=== PATIENT | male | born 1940 | race Caucasian/White ===

== ENCOUNTER → 2016-12-02 | Outpatient (CLI) | payer OTHER ==
[~2016-12-02] MED LIST: ASPIRIN325 MG PO; AUGMENTIN 875875 MG PO; CIPRO250 MG PO; FINASTERIDE5 M1 PO; FISH OIL 10001000 MG PO; GLYBURIDE5 MG PO; LOPRESSOR25 MG PO; METFORMIN1000 MG PO; METFORMIN500 MG PO; MOTRIN800 MG PO; NOVOLOG100 U/ML SC; PEPCID40 MG PO; PERCOCET 325 MG1 TA2 PO; ZESTRIL2.5 MG PO; ZOCOR20 MG PO
--- NOTE | ~2016-12-02 | ST ---
[place], [place] EXERCISE STRESS TEST REPORT NAME: YAZMIN KENT UNIT #: [id number] ROOM: DOCTOR: DONN NELSON MD BIRTHDATE: [birth year] DOS: Lexiscan portion of the Lexiscan Cardiolite on the patient. A 0.4 mg of Lexiscan, duration of 10 seconds of a 1-minute test duration. Baseline cardiogram, sinus rhythm with T-wave inversion in the inferior leads with incomplete left bundle-branch pattern with interventricular contraction delay. With Lexiscan, the patient had no new EKG changes, but the underlying EKG makes test indeterminate. He had no chest pain. Blood pressure and heart rate response was normal. FINAL IMPRESSION: Indeterminate test secondary to the underlying EKG abnormalities with left bundle-branch pattern. Blood pressure and heart rate response was normal. Nuclear images will be reported separately. DONN NELSON MD CM:STRESS:EXERCISE STRESS TEST REPORT [id number] DONN NELSON MD
== END | disposition home or self-care (01) ==
LOC: CARD 02:13
DX: Z01.810 Encounter for preprocedural cardiovascular examination (principal); I25.10 Atherosclerotic heart disease of native coronary artery without angina pectoris; R94.31 Abnormal electrocardiogram [ECG] [EKG]; R53.81 Other malaise

== ENCOUNTER 2017-04-15 14:42 | Emergency (ER) | payer MEDICARE ==
[~2017-04-15] VITALS: Ht 175.2 cm; Wt 65.8 kg
[2017-04-15] MEDS ORDERED: ASPIRIN81 M1 PO (15:02)
[2017-04-15] MEDS ORDERED: PLAVIX75 M1 PO (15:04)
== END 2017-04-15 21:03 | disposition home or self-care (01) ==
LOC: ED 14:42
DX: S51.011A Laceration without foreign body of right elbow, initial encounter (principal); S80.11XA Contusion of right lower leg, initial encounter; S09.90XA Unspecified injury of head, initial encounter; Z79.899 Other long term (current) drug therapy; W01.198A Fall on same level from slipping, tripping and stumbling with subsequent striking against other object, initial encounter; Y93.89 Activity, other specified; Y92.89 Other specified places as the place of occurrence of the external cause; Y99.8 Other external cause status

== ENCOUNTER 2017-06-12 15:42 | Inpatient (IN) | payer MEDICARE ==
[~2017-06-12] VITALS: Ht 175.2 cm; Wt 63.2 kg
--- NOTE | ~2017-06-12 | PROC NOTE ---
[place], [place] PROCEDURE NOTE [id number] UNIT #: [id number] ROOM: 405 DOCTOR: ANDRADE FOX MD,BOBO BIRTHDATE: [birth year] DOS: 06/18/2017 PREOPERATIVE DIAGNOSIS: Left upper lung mass. POSTOPERATIVE DIAGNOSES: Left upper lung mass. PROCEDURE DESCRIPTION: Informed consent obtained for the patient. The procedure was done in the OR in a supine position. The patient was given conscious sedation by the Anesthesia Department after that the airway introduced in the mouth. Fiberoptic bronchoscopy advanced to the airway into laryngeal area. Epiglottis and vocal cords were seen. Vocal cords moving symmetrically with movements. The bronchoscope advanced to the vocal cord and tracheal lumen, which was noted free of any significant problems. Jonelle was noted sharp. Right upper, right middle, right lower lobe bronchi were all noted patent without any abnormality. Left lower lobe bronchial opening was also noted patent. Mild narrowing of the left upper lung bronchus opening was noted. Small endobronchial growth was noted in the submucosa which was biopsied. Transbronchial biopsy was also obtained. A 20 mL of dilute 1:10,000 epinephrine was lavaged at the area to prevent any bleeding. A couple of mL of blood loss was noted. Procedure was tolerated. No active bleeding was noted. The patient after completion of biopsies. The postoperative findings were discussed with the patient's family members in the recovery room. Fluoroscopy: The patient to get one of the biopsy. The remaining biopsies were done endobronchially. BOBO ZAFAR MD CM:PROCNOTE:PROCEDURE NOTE [id number] 1624 BOBO FOX MD
--- NOTE | ~2017-06-12 | PR ---
[place], [place] PROGRESS NOTE [id number] UNIT #: [id number] ROOM: 405 DOCTOR: BOBO GOMEZ MD BIRTHDATE: [birth year] DOS: 06/19/2017 SUBJECTIVE: He has been noted comfortable at this time sitting on the chair. The patient denies symptoms of chest pain, shortness of breath, has bronchoscopy done yesterday successfully without any difficulty. The patient is currently assessed for possible problem in the left lower extremity. OBJECTIVE: VITAL SIGNS: For the patient which were recorded shows the temperature noted as normal. The respiratory rate of the patient was recorded as 18, heart rate of 84, blood pressure 105/49. The pulse oxygen saturation of the patient was recorded as 98% on 2 L nasal cannula at rest. HEENT: Showed no acute change. NECK: Supple. CARDIOVASCULAR: S1, S2 audible. LUNGS: Noted without any wheezing or crackles at the present time. ABDOMEN: Soft, nontender. LABORATORY DATA: Culture of the bronchial washing showed normal soha. The bronchial biopsy, transbronchial and endobronchial biopsy was pending. CBC showed WBC count of 15.2, hemoglobin 11.3, hematocrit 33.1 and platelet count was normal. BMP this morning noted normal BUN and creatinine. Sodium was noted at 133. IMPRESSION: Resolution of the hyponatremia noted progressively with the possibility of suspected metastatic cancer for this patient at this time. The cytology of the abdominal fluid, ascitic fluid was noted as suspicious for malignancy. PLAN OF MANAGEMENT: No change in treatment. The patient could be discharged whenever desired without any changes. Follow up in the office was scheduled for this patient after discharge to discuss the additional management after review of the biopsy results or other bronchoscopy or left upper lung mass. Other usual care. [place], [place] PROGRESS NOTE NAME: YAZMIN KENT UNIT #: [id number] ROOM: 405 DOCTOR: BOBO GOMEZ MD BIRTHDATE: [birth year] BOBO ZAFAR MD CM:PNTRANS 1546 1615 BOBO FOX MD 06/19/17 1616 interface
--- NOTE | ~2017-06-12 | PR ---
[place], [place] PROGRESS NOTE [id number] UNIT #: [id number] ROOM: 405 DOCTOR: MARÍA GERMANYURY BIRTHDATE: [birth year] DOS: 06/19/2017 SUBJECTIVE: The patient is doing better. He is sitting. REVIEW OF SYSTEMS: HEENT: No trouble swallowing. No double vision. No loss of vision. No pain. ENT AND RESPIRATORY: No wheeze. No change in voice. No cough. No shortness of breath. No coughing up blood. No epistaxis. CARDIOLOGIC: No chest pain. No dizziness. No irregular heartbeat. No leg edema. No palpitations. No shortness of breath. HEMATOLOGIC AND LYMPH: No past transfusion. No fatigue. No loss of appetite. No easy bruising. GASTROENEROLOGIC: No change in bowel habits. No vomiting blood. No abdominal cramping. No nausea. No vomiting. No diarrhea. No constipation. No blood in stool. MALE REPRODUCTIVE: No testicular pain. No penile discharge. MUSCULOSKELETAL: No back pain. No muscle pain or weakness. No tingling/numbness. UROLOGIC: No pain with urination. No difficulty urinating. No frequent urination. NEUROLOGIC: No burning pain in feet. No trouble with coordination. No loss of consciousness. No headache. No tingling/numbness. No memory loss. PHYSICAL EXAMINATION GENERAL: Pleasant gentleman, in no apparent distress. VITAL SIGNS: Stable. He is afebrile. HEENT: Normocephalic, atraumatic NECK AND THYROID: Supple. No JVD, thyromegaly, or lymphadenopathy. HEART: Normal S1, S2. Regular rate and rhythm. LUNGS: Clear to auscultation and percussion. ABDOMEN: Soft. Nontender, nondistended. Bowel sounds present. EXTREMITIES: Normal ROM. No clubbing. No edema. ASSESSMENT: 1. The patient for carotid Doppler. 2. Status post bronchoscopy. 3. Status post ultrasound-guided paracentesis. 4. Metastatic disease. PLAN: He will be getting a Doppler. The path reports are still pending. We will wait for that to come back. Depending on it, further intervention. [place], [place] PROGRESS NOTE NAME: YAZMIN KENT UNIT #: [id number] ROOM: 405 DOCTOR: YURY DANIEL MD BIRTHDATE: [birth year] YURY DANIEL MD CM:PNTRANS 9 YURY DANIEL MD 06/19/17929 interface
--- NOTE | ~2017-06-12 | PR ---
[place], [place] PROGRESS NOTE NAME: YAZMIN KENT [facility] #: [id number] UNIT #: [id number] ROOM: 405 DOCTOR: BONITA WALL MD BIRTHDATE: [birth year] DOS: 06/15/2017 SUBJECTIVE: The patient was seen in followup of dysnatremia. He underwent paracentesis earlier today, tolerated it well, feels a little bit better. Per his son at the bedside, he is still not having a very good appetite for about the last month prior to admission. His electrolytes show serum sodium stalling out around 123 from 124 yesterday. He continues on normal saline at rate of 40 mL an hour. His white blood cell count remains elevated at 15,000. He is on anti-infectives per the ID service for SBP empirically. OBJECTIVE: VITAL SIGNS: Temperature 97.7, 92, 18, 137/70, 97%. GENERAL: Awake and alert, pleasant mood and affect, speech clear and cogent. No significant asterixis. LUNGS: He has fairly clear lung sanchez. No audible rub. No audible wheeze. CARDIOVASCULAR: Regular rate. No audible rub. No palpable lift or heave. EXTREMITIES: Trace edema. ABDOMEN: Less distended. It seems soft, nontender, ____. No CVA tenderness. SKIN: Without diffuse rashes or breakdowns. LABORATORY DATA AND DIAGNOSTICS: White blood cell count 15.3, hemoglobin 12.8, platelets 309. INR 1.1. Sodium 123, potassium 4.5, chloride 85, bicarb 26, BUN 11, creatinine 0.64, glucose 162, calcium 7.7. Bilirubin 0.8, AST 29, ALT 18, alkaline phosphatase 108, LDH 224, albumin 2.3. CEA 3.6. Free T4 1.64. ASSESSMENT AND PLAN: 1. Hyponatremia, some improvement noted from initial admission. I would like to place the patient on gentle fluid restriction as well as encourage oral protein and ____ intake for now. No change for IV fluids until we get a better assessment. Let us check urine electrolytes, osmolality and protein creatinine ratio and another urinalysis for completeness. The etiologies of his cirrhosis on imaging is not clear. His other electrolytes seem acceptable. His ascites is being worked up by the primary service. He has a hepatic lesion which is also being further evaluated. The patient may need a gear grinder to weigh in on his unusual presentation and nodule. Consideration for alpha-fetoprotein if this has not already been sent may be also reasonable. I am deferring antibiotics to the primary and Infectious Disease Service. We will continue to follow with you. [place], [place] PROGRESS NOTE NAME: YAZMIN KENT UNIT #: [id number] ROOM: 405 DOCTOR: BONITA WALL MD BIRTHDATE: [birth year] BONITA WALL MD CM:PNTRANS [id number] 1745 BONITA WALL MD 06/16/17 0459 interface
--- NOTE | ~2017-06-12 | CON ---
[place], [place] REPORT OF CONSULTATION NAME: YAZMIN KENT [facility] #: [id number] UNIT #: [id number] ROOM: [facility] DOCTOR: MARION GALVEZ MD BIRTHDATE: [birth year] DOS: 06/13/2017 REASON FOR CONSULTATION: Hyponatremia. HISTORY OF PRESENT ILLNESS: The patient is a 76-year-old male. Apparently, he gives a history of diabetes, hypertension, GERD, coronary artery disease and cirrhosis of the liver, each of unclear. He presented to the hospital following a fall, weakness and pain in the lower extremities. He is a poor historian, but due to his ongoing issues, he was admitted to the Intensive Care Unit. Routine labs revealed a sodium level of 119. Apparently, the Emergency Room, he had a CT scan which showed hepatic cirrhosis with severe hypertension and suspicious lesion. The patient reports me he feels better today. He denies shortness of breath. He denies current nausea, vomiting. He did admit to some diarrhea. He does have abdominal distention and appears to have ascites. There was reported he has had a very poor appetite and had poor nutrition over the past few weeks. I was called about the patient's sodium last night. I did give instructions to give fluids with normal saline as a KVO rate. Labs this morning showed sodium of 123. The patient does not appear to be on any diuretics. His baseline sodium levels were unclear, although I did see October of last year normal sodium level 140. He denies fevers, chills or night sweats. ALLERGIES: Listed to TAPE. HOME MEDICATIONS: Reviewed include aspirin, Plavix, vitamin B12, Pepcid, finasteride, fish oil, insulin, lisinopril, metformin, metoprolol and simvastatin. PAST MEDICAL HISTORY: 1. Asthma. 2. BPH. 3. Coronary artery disease. 4. Cirrhosis. 5. DJD. 6. GERD. 7. Hyperlipidemia. 8. Hypertension. 9. Diabetes. 10. History of multiple falls. 11. Multiple thyroid nodules. 12. Peripheral vascular disease. 13. Bilateral carotid endarterectomy. 14. History of CABG. 15. History of TURP. FAMILY HISTORY: Negative for chronic kidney disease, otherwise noncontributory. SOCIAL HISTORY: No reports of alcohol or illicit drugs, previous history of tobacco abuse. REVIEW OF SYSTEMS: As per HPI, otherwise a 10-point review of systems was [place], [place] REPORT OF CONSULTATION [facility]: [id number] UNIT #: [id number] ROOM: [facility] DOCTOR: MARION GALVEZ MD BIRTHDATE: [birth year] reviewed and was negative. PHYSICAL EXAMINATION: VITAL SIGNS: Temperature is 97.7, pulse 80, respirations 18, blood pressure 113/46. GENERAL: He is awake, alert, critically ill, in no acute distress. HEENT: No JVD. Sclerae are anicteric. Mucous membranes are somewhat dry. Oropharynx is clear. NECK: Supple. Trachea is midline. There is no neck lymphadenopathy. There is no thyromegaly. LUNGS: Diminished breath sounds. No appreciable wheeze. There is no tactile fremitus. He is not using accessory muscles of respiration. HEART: Normal S1, S2. No rub, thrill or gallop. ABDOMEN: Distended, nontender. I could not appreciate organomegaly. There is no rigidity, rebound or guarding. There is no CVA tenderness. EXTREMITIES: Showed no edema. There is no lower extremity lymphadenopathy. Distal pulses are 2+. SKIN: No overt rash. There are no petechiae or purpura. Skin temperature is warm. NEUROLOGIC: He is awake. He is alert, moving upper extremity following commands. LABORATORY DATA: Hemoglobin 12.5, white count of 14,000, platelets of 342, BUN 17, creatinine 0.7, glucose of 195, sodium 123, potassium 4.7, CO2 of 28, calcium 8.2, phosphorus 2.2 and magnesium 1.2. IMPRESSION: 1. Hyponatremia with an unclear etiology. In the setting of cirrhosis, this may be difficult to interrupt. Although, the patient appears to be volume depleted despite his ascites. His sodium level has improved somewhat with normal saline. 2. Status post fall and weakness. 3. Cirrhosis, questionable hepatic lesions. 4. Mild anemia. 5. Leukocytosis. 6. Coronary artery disease, status post coronary artery bypass graft. 7. Diabetes mellitus. 8. Peripheral vascular disease. PLAN: 1. The patient's sodium level has improved slowly. We would recommend continuing normal saline in a KVO rate for now. Attempt to avoid overcorrection. 2. If the sodium level does not show improvement, we can certainly send him for workup. Again, with the setting of cirrhosis and ascites, this may be a difficult interpretation of urine diagnostic studies. He may require diuretics at some point. However, I would hold off on this for now. 3. Continue ongoing supportive care per the primary service. 4. Replace electrolytes. Replace magnesium and phosphorus of less than 2. Magnesium appears to have been replaced today. [place], [place] REPORT OF CONSULTATION NAME: YAZMIN KENT UNIT #: [id number] ROOM: [facility] DOCTOR: LEONOR GERMAN,MARION Reyes BIRTHDATE: [birth year] 5. Obtain thyroid studies and potentially a.m. cortisol level. I did note the patient did have a slightly low TSH with questionable mild element of hyperthyroidism, which would not likely contribute to his hyponatremia issues. 6. Continue to follow laboratory data. Thank you for this consultation. We will follow with you. MARION GALVEZ MD CM:CONSTR:REPORT OF CONSULTATION 1610 06/14/17 0607 interface
--- NOTE | ~2017-06-12 | PR ---
[place], [place] PROGRESS NOTE NAME: YAZMIN KENT [facility] #: [id number] UNIT #: [id number] ROOM: 405 DOCTOR: ANDRADE FOX MD,BOBO BIRTHDATE: [birth year] DOS: 06/18/2017 SUBJECTIVE: He is currently noted n.p.o. past midnight. Bronchoscopy planned to be done this morning. The patient denies symptoms of chest pain or any abdominal pain. He does have mild cough without any sputum expectoration. There were symptoms of hemoptysis. OBJECTIVE: VITAL SIGNS: Normal temperature, respiratory rate 18, heart rate of 113, blood pressure 122/74 to 154/80. Pulse oxygen saturation on room air was 96% saturation. HEENT: Examination shows no acute change. NECK: Supple. CARDIOVASCULAR: S1, S2 audible. LUNGS: Mild to moderate decreased breath sounds bilaterally. ABDOMEN: Soft, nontender. LABORATORY DATA: The blood culture from the showed no bacterial growth. CBC this morning, WBC count 14.3, hemoglobin 11.5, hematocrit 33.1, and platelet count 227,000. The CMP of the patient was noted as glucose 213, BUN and creatinine were normal, sodium was 128. IMPRESSION: 1. The patient with hyponatremia, which has been noted with gradual resolution. 2. Mass lesion for this patient in the left upper lobe and in the left mediastinal area. 3. Ascites, status post paracentesis. PLAN OF MANAGEMENT: Proceed with bronchoscopy as planned. No other changes in the treatment which will be necessary. Any treatment or adjustment in the medication as necessary could be ordered after the bronchoscopy. BOBO ZAFAR MD CM:PNTRANS 1549 1602 BOBO FOX MD 06/18/17 1602 interface
--- NOTE | ~2017-06-12 | EKG ---
[place], [place] ELECTROCARDIOGRAM REPORT NAME: YAZMIN KENT UNIT #: [id number] ROOM: 405 DOCTOR: DONN NELSON MD BIRTHDATE: [birth year] DOS: 06/16/2017 TIME: 10:51:33 Normal sinus rhythm versus sinus arrhythmia, hyperacute T waves, intraventricular conduction delay of left bundle branch pattern with nonspecific ST-T changes. DONN NELSON MD CM:EKGRPT:ELECTROCARDIOGRAM REPORT [id number] 1441 DONN NELSON MD
--- NOTE | ~2017-06-12 | PR ---
[place], [place] PROGRESS NOTE NAME: YAZMIN KENT [facility] #: [id number] UNIT #: [id number] ROOM: 405 DOCTOR: BONITA WALL MD BIRTHDATE: [birth year] DOS: 06/16/2017 SUBJECTIVE: The patient is seen while going back from MRI, rather unfortunate news and possible metastatic malignancy is on the differential now. A CT of the chest is showing an abnormal lesion and he already had abnormal lesions on the abdominal pelvic CT in the liver. There are some lytic lesions in the bones and a left adrenal nodule. MRI reports and imaging is still pending. His sodium is improving and we are seeing him in followup of hyponatremia. Seems to be eating a fair amount. His white count has improved slightly from yesterday and sodium is up to 126 from 123. Creatinine, renal function appears still normal. OBJECTIVE: Deferred because the patient was in transport. Vital signs reviewed. ASSESSMENT AND PLAN: Hyponatremia, continued improvement noted. Continue fluid restriction and encouragement of oral protein intake. His urine sodium is rather low and urine osmolality high; there may be some volume depletion and solute depletion component here. However, I do not want to overload him given he already has ascites. Continue the low rate of normal saline and keep mild fluid restriction orally and encourage all protein and solute intake by dietary means that he can. 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 BONITA WALL MD CM:PNMARILYN 1501 2337 BONITA WALL MD 06/16/17 2337 interface
--- NOTE | ~2017-06-12 | CON ---
[place], [place] REPORT OF CONSULTATION NAME: YAZMIN KENT [facility] #: [id number] UNIT #: [id number] ROOM: 405 DOCTOR: BOBO GOMEZ MD BIRTHDATE: [birth year] DOS: 06/17/2017 REASON FOR CONSULTATION: Assess the patient for a lung mass and pulmonary nodules. HISTORY OF PRESENT ILLNESS: This is a 76-year-old white male, who has been admitted to the hospital on 06/12/2017 under the care of hospitalist services. The patient reported symptoms of fall at home with generalized weakness and lower extremity weakness. The patient was brought to the hospital for further assessment. He was noted quite poor historian as well. The patient was known with history of peripheral vascular disease and previous intervention done for peripheral vascular arteries. He denies any symptoms of shortness of breath at this time. Denies any symptoms of coughing, cough or sputum expectoration, chest pain or hemoptysis. The patient stated that he has lost weight, but unable to quantify the exact weight loss; may be 4 or 5 pounds as he talked about it. The patient has also noted decrease in appetite. REVIEW OF SYSTEMS: CONSTITUTIONAL: Fatigue and tiredness noted without symptoms of fever or chills. EYES: Denies any burning, redness, or tenderness. EARS, Nose, THROAT SYMPTOMS: No sore throat, hoarseness, otalgia, postnasal drainage or epistaxis. CARDIOVASCULAR: Denies anginal pain, edema or pain of the lower extremities. GASTROINTESTINAL: Recent ascites was noted, patient with paracentesis done on this admission. Denies any abdominal pain, hematemesis, melena, or hematochezia. Denies symptoms of dysphagia. GENITOURINARY: Denies dysuria, suprapubic pain, or hematuria. MUSCULOSKELETAL: Lower extremities pain recently described, the patient seemed to be better. He denies any other joint pain. Denies any major deformities. SKIN: Denies any lesions or rashes. CENTRAL NERVOUS SYSTEM: Generalized weakness and fatigue was noted. Remaining systems were reviewed with the patient, they were noted all negative. PAST MEDICAL HISTORY: The patient was reported with history of: 1. Type 2 diabetes mellitus. 2. Peripheral vascular disease with previous intervention 6 times for this patient of the lower extremity a few months ago. 3. History of essential hypertension. 4. Gastroesophageal reflux. 5. BPH. 6. Hypercholesterolemia. 7. Allergic rhinitis. SOCIAL HISTORY: The patient stated that he is , lives at home. He does have 2 children. Denies history of alcohol or any illicit drugs. He has been noted with tobacco use, started at a pack of cigarettes per day for 59 years. The tobacco cessation was done 11 years ago. Denies any occupational related pulmonary exposure. [place], [place] REPORT OF CONSULTATION NAME: YAZMIN KENT UNIT #: [id number] ROOM: 405 DOCTOR: ANDRADE FOX MD,BOBO BIRTHDATE: [birth year] PAST SURGICAL HISTORY: 1. Known with history of coronary artery bypass graft eleven years ago. 2. Peripheral vascular intervention with stent placement and angioplasty. 3. TURP. 4. Bilateral carotid endarterectomy. FAMILY HISTORY: The patient's mother at the age of 84 years from complications of old age. Father at 60 years old, from complication related to the heart. HOME MEDICATIONS: Listed as use of aspirin, Plavix, vitamin B12, Proscar, fish oil, NovoLog insulin, lisinopril, metformin, metoprolol tartrate, and simvastatin. DRUG ALLERGY HISTORY: The patient was noted as no known drug allergies. PHYSICAL EXAMINATION: GENERAL: This is an elderly 76-year-old white male, who has been currently sitting on the chair without any acute distress. His height was recorded on admission by the nursing staff at 5 feet 9 inches, weight 139 pounds, BMI of 20. VITAL SIGNS: Normal temperature, respiratory rate to 20, heart rate of 89, blood pressure 101/56 to 136/65. Intake for the patient 1500, output 400 mL. Pulse oxygen saturation on room air was 97% saturation. HEENT: Shows head was atraumatic. Eyes nonicterus. NECK: Supple. CARDIOVASCULAR: S1, S2 audible. LUNGS: The patient was noted without any wheezing or crackles. ABDOMEN: Soft, nontender, bowel sounds present. EXTREMITIES: Shows no edema, clubbing or cyanosis. CENTRAL NERVOUS SYSTEM: Cranial nerves were intact. MUSCULOSKELETAL: No major deformities. LABORATORY DATA: CBC of the patient on 06/12/2017 showed WBC count 14.9, hemoglobin 13, hematocrit 38.7, platelets count 387,000. PT/PTT on 06/12/2017, INR 1.2, PTT normal. CMP of patient on 06/12, glucose 275, BUN and creatinine were normal, sodium of 119, potassium of 5.9, chloride of 81. The ESR was noted as 11. Lactic acid 3.9 on admission, lactic acid 1.6 on the same day. The ammonia level was noted 13 that was normal. Troponin on admission and over the next 24 hours were noted all normal. CBC repeated on 06/13 showed WBC count 14,000, hemoglobin 12.1, hematocrit 36.8, platelet count was normal. The CBC of the patient that was done yesterday essentially remains the same as previously. CMP of the patient on 06/16/2017, noted normal BUN and creatinine. Glucose 58, sodium 126, chloride of 89. Echocardiogram for the patient on 06/15/2017 was reviewed by the key account director and reported as left ventricle ejection fraction 55%. Moderate to severe mitral valve regurgitation was also noted. There was no pericardial effusion. The radiology data assessment for this patient showed chest x-ray of 06/12/2017, patient was noted with left hilar prominence, otherwise no acute abnormalities. [place], [place] REPORT OF CONSULTATION NAME: YAZMIN KENT UNIT #: [id number] ROOM: 405 DOCTOR: ANDRADE FOX MD,[facility] BIRTHDATE: [birth year] CT scan of the abdomen and pelvis 06/12/2017, patient was noted as a finding of left hepatic lesion measuring 1.7 cm in size with a large amount of ascites. There is diffuse calcification and longstanding ductal dilatation as well. Abdomen aorta was noted 3.5 cm in size. Large amount of colon was described. Ultrasound of the thyroid gland for the patient of 06/15/2017, was described as microcalcification with solid coarse calcification was also noted. Mixed solid and cystic lesions were noted bilaterally. CT scan of the chest, which was done without contrast for the patient was noted as finding of mass-like lesion in left upper lung medially with narrowing of the left upper lung bronchus. Several nodules for the patient noted in the lungs bilaterally. The right lower lobe nodule noted as the largest index nodule as 1.1 cm in size. Left adrenal mass 2.1 cm. The patient also reported of indeterminate etiology. CT scan of the neck for this patient on 06/15/2017 shows scattered soft tissue metastases. The patient described including in the tongue, musculature in the posterior right neck. The diffuse bony metastases was also described. MRI of the abdomen was reported as 2.3 x 3.1 cm, left large adrenal mass and still described to be indeterminant. Several metastases was noted in the liver adjacent to the gallbladder area in different sizes. Cirrhosis of the liver for this patient was also reported. IMPRESSION: 1. The patient has been currently admitted to the hospital for general weakness with severe hyponatremia noted on admission, which is improving at this time with possibility of primary lung cancer metastases ____ as well as the liver would be considered. Paraneoplastic syndrome for the patient will be considered as well as hyponatremia related to the underlying ascites with unclear etiology as well. 2. History of coronary artery disease and severe peripheral vascular disease as well. 3. Physical finding for the patient was strongly suggestive of at least moderate protein-calorie malnutrition. 4. Small left pleural fluid was noted for the patient of unclear etiology as well may be related to the underlying malignant process. PLAN OF MANAGEMENT: Further diagnostic workup for the tissue biopsy needs to be done. Bronchoscopy for this patient was discussed with transbronchial biopsy with the patient. The patient initially stated that he would like to have the procedure done as an outpatient to have something taken care of at home prior to the procedure. Procedure was scheduled to be done on Thursday morning, but then it was canceled and changed for tomorrow as a new patient since the patient changed his mind after talking to his other family members. N.p.o. past midnight status will be achieved. The ascites fluid was drained for this patient as well, with pending cytology results. Other supportive therapy, plan and management and care. Usual medical therapy, plan of care. Further treatment changes will be done based on progression of illness. Continue to closely monitor the sodium levels for this patient to keep it in adequate level. Obtain a prealbumin level as well to determine the protein calorie malnutrition assessment severity. [place], [place] REPORT OF CONSULTATION NAME: YAZMIN KENT UNIT #: [id number] ROOM: 405 DOCTOR: ANDRADE FOX MD,BOBO BIRTHDATE: [birth year] Thank you for allowing me to participate in the care of this patient. ADDENDUM PLAN OF TREATMENT: Pleural fluid noted at this time is not amenable for thoracentesis. Monitor results of cytology of the peritoneal fluid. If the bronchoscopy noted unsuccessful to reach the current segment of the left upper lobe, which always is difficult because of its acute angulation, the other option for the patient would be to assess the patient for needle aspiration biopsy of the liver metastatic lesions. The assessment and management were discussed with primary care attending for this patient, Dr. Topher Childs. BOBO ZAFAR MD CM:CONSTR:REPORT OF CONSULTATION 1231 06/17/17 1406 interface
--- NOTE | ~2017-06-12 | PR ---
[place], [place] PROGRESS NOTE NAME: YAZMIN KENT [facility] #: [id number] UNIT #: [id number] ROOM: 405 DOCTOR: YURY DANIEL MD BIRTHDATE: [birth year] DOS: 06/17/2017 SUBJECTIVE: The patient is doing much better. He feels good and is sitting on the bedside. REVIEW OF SYSTEMS: HEENT: No trouble swallowing. No double vision. No loss of vision. No pain. ENT AND RESPIRATORY: No wheeze. No change in voice. No cough. No shortness of breath. No coughing up blood. No epistaxis. CARDIOLOGIC: No chest pain. No dizziness. No irregular heartbeat. No leg edema. No palpitations. No shortness of breath. HEMATOLOGIC AND LYMPH: No past transfusion. No fatigue. No loss of appetite. No easy bruising. GASTROENEROLOGIC: No change in bowel habits. No vomiting blood. No abdominal cramping. No nausea. No vomiting. No diarrhea. No constipation. No blood in stool. MALE REPRODUCTIVE: No testicular pain. No penile discharge. MUSCULOSKELETAL: No back pain. No muscle pain or weakness. No tingling/numbness. UROLOGIC: No pain with urination. No difficulty urinating. No frequent urination. NEUROLOGIC: No burning pain in feet. No trouble with coordination. No loss of consciousness. No headache. No tingling/numbness. No memory loss. PHYSICAL EXAMINATION: GENERAL: Pleasant gentleman in no apparent distress. VITAL SIGNS: Stable. He is afebrile. HEENT: Normocephalic, atraumatic NECK AND THYROID: Supple. No JVD, thyromegaly, or lymphadenopathy. HEART: Normal S1, S2. Regular rate and rhythm. LUNGS: Clear to auscultation and percussion. ABDOMEN: Soft. Nontender, nondistended. Bowel sounds present. EXTREMITIES: Normal ROM. No clubbing. No edema. RADIOLOGY: Bone scan on 06/17/2017 showed multiple areas of ____ and this is consistent with metastatic disease. There is also degenerative uptake in multiple joints. MRI of the abdomen shows cirrhosis with moderate ascites; a large left adrenal nodule 3.1 x 2.3 cm, indeterminate finding, though it is concerning for metastatic disease; extensive hepatic lesion with peripheral enhancement concerning for metastatic disease, the largest measuring 1.6 x 1.4 cm and adjacent to the gallbladder in the right lobe. Moderate left and small right pleural effusion with compressive atelectasis and fusiform abdominal aortic aneurysm 3.4 x 3.7 cm in size and unchanged. ASSESSMENT: 1. 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 2. Cirrhosis of the liver. 3. Extensive hepatic lesions. 4. Leukocytosis, probably reactive. [place], [place] PROGRESS NOTE [id number] UNIT #: [id number] ROOM: 405 DOCTOR: YURY DANIEL MD BIRTHDATE: [birth year] 5. Anemia of chronic disease. PLAN: The patient had paracentesis done. Pathology reports are pending. If pathology is negative, he may need a biopsy of the lung or the liver. In the meantime, the patient is ambulating. I had a detailed discussion with the son and the patient about his overall condition. We will wait for the biopsy reports to come back depending for further intervention. In the meantime, we will keep a close watch on his hemoglobin and hematocrit. YURY DANIEL MD CM:PNTRANS 1302 1354 YURY DANIEL MD 06/17/17 1354 interface
--- NOTE | ~2017-06-12 | CON ---
[place], [place] REPORT OF CONSULTATION NAME: YAZMIN KENT [facility] #: [id number] UNIT #: [id number] ROOM: 405 DOCTOR: YURY DANIEL MD BIRTHDATE: [birth year] DOS: 06/16/2017 HISTORY OF PRESENT ILLNESS: The patient is a pleasant 76-year-old gentleman who presented to the Emergency Department because of a fall and has been feeling generalized weakness, pain in bilateral upper extremity as well as complaints of fall and subsequently came to the ER. He lives with his son at home, but nobody was with the patient at that time. Subsequently, he was admitted. Further workup revealed mass in the lung, mets to the bones, and subsequently consulted for further evaluation and management. PAST MEDICAL HISTORY: Significant for asthma, BPH, coronary artery disease, cirrhosis, closed head injury, degenerative joint disease, GERD, hyperlipidemia, hypertension, insulin-dependent diabetes, history of multiple falls, peripheral vascular disease, and multiple thyroid nodules. PAST SURGICAL HISTORY: Transurethral resection of the prostate, history of coronary artery bypass graft, history of bilateral carotid endarterectomy, and history of intravascular stent placement. SOCIAL HISTORY: No smoking or drinking. He used to be a former smoker. FAMILY HISTORY: Father, unknown medical history. Mother, unknown medical history. ALLERGIES: TAPE. MEDICATIONS: Aspirin, Plavix, B12, Pepcid, finasteride, fish oil, insulin, lisinopril, metformin, metoprolol tartrate, and simvastatin. RADIOLOGY: CT of the neck showed bony metastasis as well as a 4.2 x 1.7 x 2.7 cm mass in the musculature of the posterior right neck and an additional 1 cm lesion in the posterior musculature of the right neck. A 1.7 and 1.2 cm lesion ____. CT of the abdomen and pelvis showed hepatic cirrhosis and several hypodense, somewhat suspicious lesions. Recommending MRI. CT of the chest showed findings suspicious for left upper lobe carcinoma. Several additional pulmonary nodules/lesions suspicious for possible metastatic disease. Scattered osteolytic lesions suspicious for metastatic disease and indeterminate left adrenal nodule. LABORATORY DATA: White count 14.5, hemoglobin 12.4, hematocrit 36.4, and platelet count 279. Chemistries: Glucose 58, BUN 11, EGFR is more than 60, sodium 126, potassium 4.3, chloride 89, and bicarbonate 30. SGOT 21 and SGPT 15. Paracentesis pathology is pending. REVIEW OF SYSTEMS CONSTITUTIONAL: No chills. No fatigue. No fever. No loss of appetite. No night sweats. No weakness. No weight loss. HEENT: No trouble swallowing. No loss of smell. No loss of hearing. No double vision. No pain. No discharge. ENT AND RESPIRATORY: No wheeze. No sore throat. No change in voice. No [place], [place] REPORT OF CONSULTATION NAME: YAZMIN KENT UNIT #: [id number] ROOM: 405 DOCTOR: YURY DANIEL MD BIRTHDATE: [birth year] hearing loss. No nose bleed. No cough. No trouble breathing through nose. No shortness of breath. No coughing up blood. No epistaxis. CARDIOVASCULAR: No chest pain. No dizziness. No irregular heartbeat. No leg edema. No pain in legs while walking. No palpitations. No shortness of breath. DERMATOLOGIC: No acne. No hives. No laceration. No mole. No rash. ENDOCRINE: No cold intolerance. No diabetes. No fatigue. No hot flashes. No polydipsia. No polyuria. No urinating frequently. No weight loss. HEMATOLOGIC AND LYMPH: No fatigue. No easy bruising. GASTROENTEROLOGIC: No change in bowel habits. No indigestion. No frequent bloating. No vomiting blood. No abdominal cramping. No nausea. No heartburn. No vomiting. No abdominal pain. No dysphagia. No diarrhea. No constipation. No blood in stool. MALE REPRODUCTIVE: No testicular pain. No difficulty with erection. No diminished sexual drive. No penile discharge. MUSCULOSKELETAL: No back pain. No muscle pain or weakness. No neck pain. No tingling/numbness. No swelling/bruising. No osteoporosis treatment. OPHTHALMOLOGIC: No double vision. No diminished vision. No loss of vision. UROLOGIC: No dysuria. No frequent nighttime urination. No pain with urination. No difficulty urinating. No blood in urine. No frequent urination. No urinary incontinence. NEUROLOGIC: No loss of sensation in specific body area. No vertigo. No burning pain in feet. No trouble with balance. No trouble with coordination. No loss of consciousness. No loss of feeling/power. No confusion. No headache. No tingling/numbness. PSYCHOLOGIC: No tinnitus. No headaches. No shortness of breath. No weight decrease. No nausea. No vomiting. No abdominal discomfort. No constipation. No diarrhea. No depression. No anxiety. PHYSICAL EXAMINATION: GENERAL: General appearance: Pleasant gentleman in no apparent distress. VITAL SIGNS: Stable. Afebrile. HEENT: Oral mucosa appears intact. The external ears are normal in appearance. Nares are patent without lesions, exudates, erythema, or inflammation. Tongue is symmetrical. Uvula is midline. NECK AND THYROID: Neck supple without palpable masses. Trachea is midline. No thyromegaly. No carotid bruit or JVD. BREASTS: Normal. Nipples unremarkable. No drainage. No lumps felt on either side. HEART: Normal S1, S2, without significant murmur, rub, or gallop. LUNGS: Clear to auscultation and percussion with good air entry bilaterally. The patient is breathing easily without the use of accessory muscles. Diaphragmatic excursions are intact. ABDOMEN: No costovertebral angle tenderness. Soft. No organomegaly or masses. Nontender. No hernias present. Liver and spleen are not palpable. LYMPHATIC: No adenopathy noted in the cervical, supraclavicular, axillary, or inguinal regions. NEUROLOGIC: Nonfocal. Oriented to person, place, and time. MENTAL STATUS: Appropriate for mood and affect. PERIPHERAL PULSES: No varicosities. Femoral and pedal pulses are palpable. [place], [place] REPORT OF CONSULTATION [facility]: [id number] UNIT #: [id number] ROOM: 405 DOCTOR: YURY DANIEL MD BIRTHDATE: [birth year] EXTREMITIES: Without cyanosis, clubbing, or edema. No gross anomalies. ASSESSMENT: 1. A 76-year-old gentleman recently found to have a mass in the lung with mets to the lung, bones, and possibly the neck. 2. Status post paracentesis for ascites fluid with possibility of cirrhosis. MRI report is pending. 3. Anemia, probably of neoplastic disorder. 4. Leukocytosis, reactive. PLAN: I had a detailed discussion with the family about it. We will wait for the pathology reports to come back. In the meantime, review the CAT scans and we will also get a bone scan and Pulmonary consult. I had a detailed discussion with the patient as well as his son who agreed with the plan. Depending on the above, further intervention. Ample time was given to the patient to ask me questions. We will follow. Thanks for consulting and letting me participate in the care of this interesting patient. YURY DANIEL MD CM:CONSTR:REPORT OF CONSULTATION 1354 06/16/17 1453 interface
--- NOTE | ~2017-06-12 | PR ---
[place], [place] PROGRESS NOTE [id number] UNIT #: [id number] ROOM: 405 DOCTOR: YURY DANIEL MD BIRTHDATE: [birth year] DOS: 06/18/2017 SUBJECTIVE: Voices no complaint. PHYSICAL EXAMINATION: VITAL SIGNS: Stable. Afebrile. HEENT: Normocephalic, atraumatic NECK AND THYROID: Supple. No JVD, thyromegaly, or lymphadenopathy. HEART: Normal S1, S2. Regular rate and rhythm. LUNGS: Clear to auscultation and percussion. ABDOMEN: Soft. Nontender, nondistended. Bowel sounds present. EXTREMITIES: Normal ROM. No clubbing. No edema. LABORATORY DATA: White count of 14.3, hemoglobin 11.5, hematocrit 33.1, and platelet count of 227. ASSESSMENT: 1. Status post bronchoscopy. 2. Status post ultrasound-guided paracentesis. 3. Spontaneous bacterial peritonitis. 4. Metastatic disease. 5. Leukocytosis, reactive. PLAN: We will wait for a bronch and paracentesis report to come back. Depending upon that, further intervention. In the meantime, we will review the staging workup. Ample time was given to the patient to ask me questions. YURY DANIEL MD CM:PNTRANS 1456 1524 YURY DANIEL MD 06/18/17 1524 interface
--- NOTE | ~2017-06-12 | PR ---
[place], [place] PROGRESS NOTE NAME: YAZMIN KENT UNIT #: [id number] ROOM: 405 DOCTOR: BONITA WALL MD BIRTHDATE: [birth year] DOS: NEPHROLOGY PROGRESS NOTE SUBJECTIVE: Overall, the patient continues to have poor intake. He was having subjective fullness in his belly, making him not want to eat. Some fluids are at the bedside. He is on a 1200 mL fluid restriction, but probably not getting up to that. Intake and output does seem to be a little bit higher than that, but that includes his IV fluids, which were continuing as well. It was at a rate of I believe 40 mL per hour. Heme/Onc continues to follow. He underwent a bronchoscopy earlier this morning. He is also in process of paracentesis. Pathology and cytology from those are still pending at this point. OBJECTIVE: VITAL SIGNS: Temperature 97.9, 116, 18, 117/62, 95%. GENERAL: The patient is awake, alert, without acute distress, chronically ill appearing. LUNGS: Decreased breath sounds. No audible rales or wheeze. CARDIOVASCULAR: Tachycardic rate. No audible rub. ABDOMEN: Distended. No rebound or guarding. EXTREMITIES: Without cyanosis or significant peripheral edema. LABORATORY DATA AND DIAGNOSTICS: White blood cell count 14.3, hemoglobin 11.5, platelets 227. Sodium 128, potassium 4.5, chloride 93, bicarb 25, BUN 13, creatinine 0.63, glucose 213, calcium 7.9, phosphorus 3.0, magnesium 1.7, prealbumin 5 and albumin 2.0. ASSESSMENT AND PLAN: 1. Hyponatremia. This continues to be the case, likely syndrome of inappropriate antidiuretic hormone and solid depletion. Stop IV fluids at this point and encourage oral protein intake as able. Continue fluid restricting him and Nutrition consultation for severe protein calorie malnutrition, likely as a consequence of the metastatic cancer. Further neoplastic workup and treatment as per the Oncology service and Pulmonary service. Thank you very much. We will follow peripherally. [place], [place] PROGRESS NOTE NAME: YAZMIN KENT UNIT #: [id number] ROOM: 405 DOCTOR: BONITA WALL MD BIRTHDATE: [birth year] BONITA AWLL MD CM:YENNI 1216 BONITA WALL MD 06/18/17 1349 interface
--- NOTE | ~2017-06-12 | CON ---
[place], [place] REPORT OF CONSULTATION NAME: YAZMIN KENT [facility] #: [id number] UNIT #: [id number] ROOM: 405 DOCTOR: DONN NELSON MD BIRTHDATE: [birth year] DOS: 06/16/2017 HISTORY OF PRESENT ILLNESS: This is a 76-year-old gentleman very well known to me. I was consulted because of significant tachycardic episodes. The patient got admitted on the because of significant shortness of breath. He came from home. The patient reports falling 5 times since 10/2016. Ever since vascular stent placed in his bilateral lower extremities, the patient states that he had trouble in his legs ever since. The patient denies any chest discomfort and also reports feeling sick and seen by Dr. Lemus. 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 Does have a history of chronic left bundle branch block. Denies any chest discomfort. PAST MEDICAL HISTORY: Coronary artery disease, degenerative joint disease, cirrhosis, and peripheral vascular disease. PAST SURGICAL HISTORY: Coronary artery bypass surgery, endarterectomy, intravascular stent placement, and TURP. SOCIAL HISTORY: Denies any alcohol abuse or drug abuse. FAMILY HISTORY: Unknown. HOME MEDICATIONS: Aspirin, clopidogrel, fish oil, lisinopril, metformin, metoprolol, and simvastatin. ALLERGIES: None. REVIEW OF SYSTEMS: CONSTITUTIONAL: No fever, no chills. HEENT: No visual disturbances or hearing problems. CARDIOVASCULAR: Complains of palpitations. RESPIRATORY: Does have dyspnea on exertion. ABDOMEN: Complains of abdominal pain and distention. GENITOURINARY: No dysuria. NEUROLOGIC: Intact. PSYCHIATRIC: Intact. ENDOCRINE: Intact. All other review of systems are negative. PHYSICAL EXAMINATION: VITAL SIGNS: Blood pressure today is 128/57. I reviewed the echocardiogram. NECK: Supple. No JVD. LUNGS: Diminished breath sounds. HEART: Heart sounds are regular. ABDOMEN: Soft. Appears to be stable. DIAGNOSTIC DATA: Shows sinus tachycardia with left bundle branch pattern. Echocardiogram reviewed by me showed an ejection fraction is about 50-55%. Aortic valve appears to be normal. Right ventricle is normal size and function. Tricuspid valve shows moderate tricuspid regurgitation, yjhcmcwy-ce-bokteh mitral regurgitation, probably the reason of this increased girth of the abdomen [place], [place] REPORT OF CONSULTATION NAME: YAZMIN KENT UNIT #: [id number] ROOM: 405 DOCTOR: DONN NELSON MD BIRTHDATE: [birth year] also. LABORATORY DATA: shows hemoglobin 12.4, hematocrit 36.4. Sodium 126, potassium 4.3, BUN 11, creatinine 0.8. INR is 1.1. IMPRESSION: The patient with sinus tachycardia, diastolic failure, moderate mitral regurgitation, fluid overload, ascites. RECOMMENDATIONS: Continue the present care. Increase the metoprolol to 50 b.i.d. Continue with other medications. Monitor the heart rate and blood pressure very closely. No evidence of any systolic heart failure and we will closely follow up. DONN NELSON MD CM:CONSTR:REPORT OF CONSULTATION 1033 06/16/17 1058 interface
--- NOTE | ~2017-06-12 | PR ---
[place], [place] PROGRESS NOTE NAME: YAZMIN KENT [facility] #: [id number] UNIT #: [id number] ROOM: 405 DOCTOR: BONITA WALL MD BIRTHDATE: [birth year] DOS: 06/17/2017 SUBJECTIVE: Seen in followup of hyponatremia. Overall, has been undergoing a neoplastic workup because of imaging concerning for malignancy with metastatic diseases possibly in lungs, adrenal, liver and lung. Cytology from ascites is pending, trying to eat a little bit more. No events overnight. On his way bone scan. OBJECTIVE: VITAL SIGNS: Temperature 97.9, 91, 20, 101/56, 97% on room air. GENERAL: Weak ill appearing, able to transfer, alert and oriented. LUNGS: Decreased. ABDOMEN: Still distended, but slightly better than in the past. EXTREMITIES: Without cyanosis, clubbing or edema. LABORATORIES AND DIAGNOSTICS: Yesterday, sodium was 126. No recent labs back other than antibody, both negative. MRI reviewed showing lesions in the lung, the liver and adrenal. ASSESSMENT AND PLAN: Hyponatremia. This has been improving. 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 Continue gentle fluid restriction and encouragement of oral protein and solute intake. Continue on low rate of normal saline at 40 mL an hour. Follow up labs have been ordered for tomorrow. Continue to follow. Further neoplastic workup per the oncology service. BONITA WALL MD CM:PNTRANS [id number] BONITA WALL MD 06/17/17 1257 interface
--- NOTE | ~2017-06-12 | PR ---
[place], [place] PROGRESS NOTE [facility]ENT [facility] [id number] UNIT #: [id number] ROOM: 405 DOCTOR: BONITA WALL MD BIRTHDATE: [birth year] DOS: 06/19/2017 NEPHROLOGY PROGRESS NOTE SUBJECTIVE: The patient was seen in followup of hyponatremia. Overall, he is doing well from a sodium standpoint; however, from an oncologic and vascular standpoint, this is the different story. He is being transferred from my understand to [facility]. His abdominal fluid is now suspicious for malignancy with hyperchromatic cells. Cell block preparation is pending. A lower extremity, left arterial Doppler showing inclusion in the left lower extremity beginning this superficial femoral artery at the level of prior stenting. He is noting some increased pain in that area and some mottling changes. Venous ultrasound was negative for DVT. The bronchoscopy is fragments of inflamed mucosa are noted. No evidence of malignancy was seen on that, rebiopsy was recommended. LABORATORY DATA AND DIAGNOSTICS: Sodium 133 up from 128, potassium 3.9, chloride 95, bicarbonate 28, BUN 15, creatinine 0.62, calcium 7.9. White blood cell count 15.2, hemoglobin 11.3, platelets 223. 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 Continue further workup per oncology, now to be transferred for oncology and vascular followup for ischemic left lower extremity. If necessary, consultation with my service can be done at [facility]. Case was discussed with the patient's family and nursing. BONITA WALL MD CM:PNTRANS [id number] BONITA WALL MD 06/20/17214 interface
[~2017-06-12 15:42] MED LIST changes: +ASPIRIN81 M1 PO; +PLAVIX75 M1 PO
[2017-06-12 15:43] VITALS: BP 143/74
[2017-06-12 16:59] LABS: BASO % 0.2 % (0.0-1.0); EOS % 0.1 % (1.0-4.0); HEMATOCRIT 37.3 % (42.0-52.0); IG # 0.2 10*3/uL (0.0-0.1); LYMPH # 0.9 10*3/uL (1.3-4.4); LYMPH % 5.9 % (27.0-41.0); MEAN CELL VOLUME 88.4 fl (80.0-94.0); MEAN CORPUSCULAR HGB 30.8 pg (27.0-31.0); MEAN CORPUSCULAR HGB CONC 34.9 g/dl (33.0-37.0); MEAN PLATELET VOLUME 8.8 fl (9.6-12.3); MONO # 0.8 10*3/uL (0.1-1.0); MONO % 5.4 % (3.0-9.0); NEUT % 87.1 % (47.0-73.0); PLATELET COUNT AUTOMATED 387 10*3/uL (130-400); RED BLOOD COUNT 4.22 10*6/uL (4.50-5.90); RED CELL DISTRI WIDTH 13.9 % (0-14.5); WHITE BLOOD COUNT 14.9 10*3/uL (4.8-10.8)
[2017-06-12 17:14] LABS: INTERNATIONAL NORM RATIO 1.2 (2.0-3.5); PROTHROMBIN TIME 12.7 SECONDS (9.0-12.4)
[2017-06-12 17:56] LABS: ALBUMIN 2.9 gm/dl (3.1-4.5); ALKALINE PHOSPHATASE 106 U/L (45-117); BILIRUBIN, TOTAL 0.7 mg/dl (0.2-1.0); BUN 24 mg/dl (7-24); C-REACTIVE PROTEIN 3.91 MG/DL (0-0.3); CARBON DIOXIDE 25 mmol/L (21-32); CHLORIDE 81 mmol/L (98-107); CPK 146 U/L (39-308); EST GLOM FILT AFRICAN AMERICAN > 60 ml/min; GLUCOSE 275 mg/dL (65-99); MAGNESIUM 1.4 mg/dL (1.5-2.1); POTASSIUM 5.3 mmol/L (3.5-5.1); SGOT/AST 20 IU/L (3-35); SGPT/ALT 18 U/L (12-78); TOTAL PROTEIN 6.6 gm/dL (6.4-8.2)
[2017-06-12 17:57] LABS: TROPONIN I < 0.015 ng/ml (<0.045)
[2017-06-12 17:58] LABS: CKMB 8.7 ng/ml (0.5-3.6); SODIUM 119 mmol/L (136-145)
[2017-06-12 18:01] LABS: THYROID STIM HORMONE (HS) 0.387 uIU/ml (0.358-4.75)
[2017-06-12 18:06] LABS: FOLIC ACID 10.21 ng/mL (>5.38)
[2017-06-12 18:45] LABS: BILIRUBIN 1+ (NEGATIVE); BLOOD NEGATIVE (NEGATIVE); CLARITY CLEAR (CLEAR); COLOR YELLOW (YELLOW); GLUCOSE 1+ (NEGATIVE); KETONE 2+ (NEGATIVE); LEUKO ESTERASE NEGATIVE (NEGATIVE); NITRITE NEGATIVE (NEGATIVE); PH 5.5 (5.0-9.0); PROTEIN 1+ (NEGATIVE); SPECIFIC GRAVITY >= 1.030 (1.005-1.030); UROBILINOGEN 0.2 E.U./dl (0.2-1.0)
[2017-06-12 18:55] LABS: LA>2 REFLEX 2 HR DRAW NOW
[2017-06-12 19:02] LABS: BACTERIA TRACE; RBC 0-2 rbc/hpf (0-2); URINE REFLEX COMMENT NO (NO); WBC 0-2 wbc/hpf (0-5)
[2017-06-12 19:22] LABS: LA>2 RFLX FOLLOW UP AT 2 HRS 2.1 mmol/L (0.4-2.0)
[2017-06-12 21:14] LABS: LA>2 REFLEX 4 HR DRAW NOW
[2017-06-12 22:00] VITALS: BP 143/77
[2017-06-12] MEDS ORDERED: BASAGLAR K100 UNIT/1 SQ (23:27)
[2017-06-12] MEDS ORDERED: NOVOLOG10 ML SQ (23:27)
[2017-06-13] VITALS: BP 147/72
[2017-06-13 04:00] VITALS: BP 145/77
[2017-06-13 05:42] LABS: HEMOGLOBIN A1c 7.2 % (4.8-5.6)
[2017-06-13 05:51] LABS: BASO % 0.3 % (0.0-1.0); EOS # 0.1 10*3/uL (0.0-0.4); EOS % 0.8 % (1.0-4.0); HEMATOCRIT 36.3 % (42.0-52.0); HEMOGLOBIN 12.5 g/dl (14.0-18.0); IG # 0.2 10*3/uL (0.0-0.1); LYMPH % 7.4 % (27.0-41.0); MEAN CELL VOLUME 87.9 fl (80.0-94.0); MEAN CORPUSCULAR HGB 30.3 pg (27.0-31.0); MEAN CORPUSCULAR HGB CONC 34.4 g/dl (33.0-37.0); MEAN PLATELET VOLUME 9.1 fl (9.6-12.3); MONO % 7.1 % (3.0-9.0); NEUT # 11.6 10*3/uL (2.3-7.9); NEUT % 83.3 % (47.0-73.0); PLATELET COUNT AUTOMATED 342 10*3/uL (130-400); RED BLOOD COUNT 4.13 10*6/uL (4.50-5.90); RED CELL DISTRI WIDTH 13.8 % (0-14.5)
[2017-06-13 05:53] LABS: ALBUMIN 2.6 gm/dl (3.1-4.5); BILIRUBIN, TOTAL 0.7 mg/dl (0.2-1.0); BUN 17 mg/dl (7-24); CARBON DIOXIDE 28 mmol/L (21-32); CHLORIDE 83 mmol/L (98-107); CHOLESTEROL 96 mg/dL (<200); EST GLOM FILT AFRICAN AMERICAN > 60 ml/min; GLUCOSE 195 mg/dL (65-99); HDL CHOLESTEROL 41 mg/dl (40-60); LDL CHOLESTEROL 31 mg/dL (9-159); MAGNESIUM 1.2 mg/dL (1.5-2.1); PHOSPHOROUS 2.2 mg/dL (2.5-4.9); POTASSIUM 4.7 mmol/L (3.5-5.1); SGOT/AST 20 IU/L (3-35); SGPT/ALT 16 U/L (12-78); SODIUM 123 mmol/L (136-145); TRIGLYCERIDES 119 mg/dl (<150); VLDL CHOLESTEROL 24 mg/dL (6-40)
[2017-06-13 05:59] LABS: ALKALINE PHOSPHATASE 100 U/L (45-117); FREE T4 1.62 ng/dl (0.76-1.46); THYROID STIM HORMONE (HS) 0.318 uIU/ml (0.358-4.75)
[2017-06-13 06:01] LABS: INTERNATIONAL NORM RATIO 1.1 (2.0-3.5); PROTHROMBIN TIME 11.4 SECONDS (9.0-12.4)
[2017-06-13 08:00] VITALS: BP 120/70; BP 124/70
[2017-06-13] MEDS ORDERED: B12100 MC1 PO (08:24)
[2017-06-13 09:28] LABS: FOLIC ACID 10.45 ng/mL (>5.38); VITAMIN D, 25-HYDROXY 23.8 ng/mL (30-100)
[2017-06-13 12:00] VITALS: BP 113/46
[2017-06-13 16:00] VITALS: BP 104/50
[2017-06-13 20:00] VITALS: BP 100/58
[2017-06-14] VITALS: BP 125/53
[2017-06-14 04:00] VITALS: BP 127/60
[2017-06-14 06:17] LABS: BASO % 0.3 % (0.0-1.0); EOS # 0.1 10*3/uL (0.0-0.4); EOS % 1.1 % (1.0-4.0); HEMOGLOBIN 11.4 g/dl (14.0-18.0); IG # 0.1 10*3/uL (0.0-0.1); LYMPH # 1.2 10*3/uL (1.3-4.4); LYMPH % 10.3 % (27.0-41.0); MEAN CELL VOLUME 88.5 fl (80.0-94.0); MEAN CORPUSCULAR HGB 30.6 pg (27.0-31.0); MEAN CORPUSCULAR HGB CONC 34.5 g/dl (33.0-37.0); MEAN PLATELET VOLUME 8.8 fl (9.6-12.3); MONO # 0.8 10*3/uL (0.1-1.0); MONO % 7.3 % (3.0-9.0); NEUT # 9.1 10*3/uL (2.3-7.9); NEUT % 79.9 % (47.0-73.0); PLATELET COUNT AUTOMATED 288 10*3/uL (130-400); RED BLOOD COUNT 3.73 10*6/uL (4.50-5.90); RED CELL DISTRI WIDTH 13.9 % (0-14.5); WHITE BLOOD COUNT 11.4 10*3/uL (4.8-10.8)
[2017-06-14 06:43] LABS: ALBUMIN 2.2 gm/dl (3.1-4.5); ALKALINE PHOSPHATASE 96 U/L (45-117); BILIRUBIN, TOTAL 0.5 mg/dl (0.2-1.0); BUN 13 mg/dl (7-24); CARBON DIOXIDE 29 mmol/L (21-32); CHLORIDE 87 mmol/L (98-107); EST GLOM FILT AFRICAN AMERICAN > 60 ml/min; GLUCOSE 83 mg/dL (65-99); POTASSIUM 4.5 mmol/L (3.5-5.1); SGOT/AST 21 IU/L (3-35); SGPT/ALT 15 U/L (12-78); SODIUM 124 mmol/L (136-145); TOTAL PROTEIN 5.1 gm/dL (6.4-8.2)
[2017-06-14 08:00] VITALS: BP 128/48
[2017-06-14 08:27] LABS: MAGNESIUM 1.6 mg/dL (1.5-2.1); PHOSPHOROUS 2.7 mg/dL (2.5-4.9)
[2017-06-14 12:00] VITALS: BP 101/52
[2017-06-14 16:00] VITALS: BP 94/47
[2017-06-14 20:00] VITALS: BP 110/67
[2017-06-15] VITALS: BP 121/59
[2017-06-15 04:00] VITALS: BP 144/75
[2017-06-15 06:37] LABS: ALBUMIN 2.3 gm/dl (3.1-4.5); ALKALINE PHOSPHATASE 108 U/L (45-117); BILIRUBIN, TOTAL 0.8 mg/dl (0.2-1.0); BUN 11 mg/dl (7-24); CARBON DIOXIDE 26 mmol/L (21-32); CHLORIDE 85 mmol/L (98-107); EST GLOM FILT AFRICAN AMERICAN > 60 ml/min; GLUCOSE 162 mg/dL (65-99); LDH 224 U/L (87-241); POTASSIUM 4.5 mmol/L (3.5-5.1); SGOT/AST 29 IU/L (3-35); SGPT/ALT 18 U/L (12-78); SODIUM 123 mmol/L (136-145); TOTAL PROTEIN 5.7 gm/dL (6.4-8.2)
[2017-06-15 06:39] LABS: CEA 3.6 ng/mL; FREE T4 1.64 ng/dl (0.76-1.46)
[2017-06-15 06:40] LABS: BASO # 0.1 10*3/uL (0.0-0.1); BASO % 0.3 % (0.0-1.0); EOS # 0.1 10*3/uL (0.0-0.4); EOS % 0.7 % (1.0-4.0); HEMOGLOBIN 12.8 g/dl (14.0-18.0); IG # 0.2 10*3/uL (0.0-0.1); LYMPH # 1.1 10*3/uL (1.3-4.4); LYMPH % 7.1 % (27.0-41.0); MEAN CELL VOLUME 89.4 fl (80.0-94.0); MEAN CORPUSCULAR HGB 30.9 pg (27.0-31.0); MEAN CORPUSCULAR HGB CONC 34.6 g/dl (33.0-37.0); MEAN PLATELET VOLUME 9.2 fl (9.6-12.3); MONO # 0.9 10*3/uL (0.1-1.0); MONO % 5.9 % (3.0-9.0); NEUT % 84.7 % (47.0-73.0); PLATELET COUNT AUTOMATED 309 10*3/uL (130-400); RED BLOOD COUNT 4.14 10*6/uL (4.50-5.90); RED CELL DISTRI WIDTH 14.2 % (0-14.5); WHITE BLOOD COUNT 15.3 10*3/uL (4.8-10.8)
[2017-06-15 07:06] LABS: INTERNATIONAL NORM RATIO 1.1 (2.0-3.5); PROTHROMBIN TIME 11.9 SECONDS (9.0-12.4)
[2017-06-15 08:00] VITALS: BP 137/70
[2017-06-15 14:48] LABS: BODY FLUID TYPE PERITONEAL
[2017-06-15 14:53] LABS: BODY FLUID WBC 1540 /uL
[2017-06-15 16:00] VITALS: BP 103/52
[2017-06-15 16:21] LABS: BODY FLUID ALBUMIN 1.8 g/dL; BODY FLUID LDH 545 IU/L; BODY FLUID PROTEIN 3.2 g/dl
[2017-06-15 17:26] LABS: BILIRUBIN NEGATIVE (NEGATIVE); BLOOD NEGATIVE (NEGATIVE); CLARITY SL CLOUDY (CLEAR); COLOR YELLOW (YELLOW); GLUCOSE 2+ (NEGATIVE); KETONE 1+ (NEGATIVE); LEUKO ESTERASE NEGATIVE (NEGATIVE); NITRITE NEGATIVE (NEGATIVE); PH 5.5 (5.0-9.0); PROTEIN 2+ (NEGATIVE); SPECIFIC GRAVITY >= 1.030 (1.005-1.030); UROBILINOGEN 0.2 E.U./dl (0.2-1.0)
[2017-06-15 17:27] LABS: URINE TP/CRE RATIO 0.6 (<0.21)
[2017-06-15 17:55] LABS: BACTERIA 2+; EPITHELIAL CELLS 0-2; MUCOUS TRACE; RBC 0-2 rbc/hpf (0-2); URINE REFLEX COMMENT YES (NO)
[2017-06-15 18:44] LABS: BODY FLUID RBC 1475 /uL
[2017-06-15 20:00] VITALS: BP 124/63
[2017-06-16] VITALS: BP 127/64
[2017-06-16 06:10] LABS: THYROID PEROXIDASE (TPO) AB <6 IU/mL (0-34)
[2017-06-16 06:12] LABS: BASO % 0.3 % (0.0-1.0); EOS # 0.1 10*3/uL (0.0-0.4); EOS % 0.9 % (1.0-4.0); HEMATOCRIT 36.4 % (42.0-52.0); HEMOGLOBIN 12.4 g/dl (14.0-18.0); IG # 0.2 10*3/uL (0.0-0.1); LYMPH # 1.1 10*3/uL (1.3-4.4); LYMPH % 7.7 % (27.0-41.0); MEAN CELL VOLUME 89.7 fl (80.0-94.0); MEAN CORPUSCULAR HGB 30.5 pg (27.0-31.0); MEAN CORPUSCULAR HGB CONC 34.1 g/dl (33.0-37.0); MEAN PLATELET VOLUME 9.1 fl (9.6-12.3); MONO % 6.8 % (3.0-9.0); NEUT # 12.1 10*3/uL (2.3-7.9); NEUT % 83.1 % (47.0-73.0); PLATELET COUNT AUTOMATED 279 10*3/uL (130-400); RED BLOOD COUNT 4.06 10*6/uL (4.50-5.90); WHITE BLOOD COUNT 14.5 10*3/uL (4.8-10.8)
[2017-06-16 06:29] LABS: ALBUMIN 2.1 gm/dl (3.1-4.5); BILIRUBIN, TOTAL 0.3 mg/dl (0.2-1.0); BUN 11 mg/dl (7-24); CARBON DIOXIDE 30 mmol/L (21-32); CHLORIDE 89 mmol/L (98-107); EST GLOM FILT AFRICAN AMERICAN > 60 ml/min; GLUCOSE 58 mg/dL (65-99); MAGNESIUM 1.5 mg/dL (1.5-2.1); PHOSPHOROUS 2.7 mg/dL (2.5-4.9); POTASSIUM 4.3 mmol/L (3.5-5.1); SGOT/AST 21 IU/L (3-35); SGPT/ALT 15 U/L (12-78); SODIUM 126 mmol/L (136-145); TOTAL PROTEIN 5.3 gm/dL (6.4-8.2)
[2017-06-16 06:30] LABS: ALKALINE PHOSPHATASE 92 U/L (45-117)
[2017-06-16 08:00] VITALS: BP 128/57
[2017-06-16 10:15] LABS: BF LYMPHOCYTES 2 %; BF MACROPHAGES 77 %; BF NEUTROPHILS 21 %
[2017-06-16 12:00] VITALS: BP 119/56
[2017-06-16 12:07] LABS: THYROGLOBULIN ANTIBODY <1.0 IU/mL (0.0-0.9)
[2017-06-16 16:00] VITALS: BP 105/51; BP 110/61
[2017-06-16 20:00] VITALS: BP 90/52
[2017-06-16 21:00] VITALS: BP 110/62
[2017-06-17] VITALS: BP 136/65
[2017-06-17 08:00] VITALS: BP 101/56
[2017-06-17 12:00] VITALS: BP 100/51
[2017-06-17 16:00] VITALS: BP 120/45
[2017-06-17 20:00] VITALS: BP 146/72
[2017-06-18] VITALS (9 sets, daily range): BP systolic 106–154; BP diastolic 58–80
[2017-06-18 06:18] LABS: ALKALINE PHOSPHATASE 96 U/L (45-117); BILIRUBIN, TOTAL 0.5 mg/dl (0.2-1.0); BUN 13 mg/dl (7-24); CARBON DIOXIDE 25 mmol/L (21-32); CHLORIDE 93 mmol/L (98-107); EST GLOM FILT AFRICAN AMERICAN > 60 ml/min; GLUCOSE 213 mg/dL (65-99); MAGNESIUM 1.7 mg/dL (1.5-2.1); POTASSIUM 4.5 mmol/L (3.5-5.1); SGOT/AST 22 IU/L (3-35); SGPT/ALT 17 U/L (12-78); SODIUM 128 mmol/L (136-145); TOTAL PROTEIN 5.1 gm/dL (6.4-8.2)
[2017-06-18 06:19] LABS: PREALBUMIN 5 mg/dl (20-40)
[2017-06-18 06:24] LABS: BASO % 0.3 % (0.0-1.0); EOS % 0.3 % (1.0-4.0); HEMATOCRIT 33.1 % (42.0-52.0); HEMOGLOBIN 11.5 g/dl (14.0-18.0); IG # 0.2 10*3/uL (0.0-0.1); LYMPH # 0.8 10*3/uL (1.3-4.4); LYMPH % 5.8 % (27.0-41.0); MEAN CELL VOLUME 90.7 fl (80.0-94.0); MEAN CORPUSCULAR HGB 31.5 pg (27.0-31.0); MEAN CORPUSCULAR HGB CONC 34.7 g/dl (33.0-37.0); MEAN PLATELET VOLUME 9.3 fl (9.6-12.3); MONO # 0.9 10*3/uL (0.1-1.0); MONO % 6.5 % (3.0-9.0); NEUT # 12.3 10*3/uL (2.3-7.9); PLATELET COUNT AUTOMATED 227 10*3/uL (130-400); RED BLOOD COUNT 3.65 10*6/uL (4.50-5.90); RED CELL DISTRI WIDTH 14.1 % (0-14.5); WHITE BLOOD COUNT 14.3 10*3/uL (4.8-10.8)
[2017-06-19] VITALS: BP 113/58
[2017-06-19 06:42] LABS: BASO % 0.2 % (0.0-1.0); EOS % 0.3 % (1.0-4.0); HEMATOCRIT 33.1 % (42.0-52.0); HEMOGLOBIN 11.3 g/dl (14.0-18.0); IG # 0.1 10*3/uL (0.0-0.1); LYMPH # 1.2 10*3/uL (1.3-4.4); LYMPH % 8.1 % (27.0-41.0); MEAN CELL VOLUME 90.9 fl (80.0-94.0); MEAN CORPUSCULAR HGB CONC 34.1 g/dl (33.0-37.0); MEAN PLATELET VOLUME 9.5 fl (9.6-12.3); MONO % 6.6 % (3.0-9.0); NEUT # 12.7 10*3/uL (2.3-7.9); NEUT % 83.9 % (47.0-73.0); PLATELET COUNT AUTOMATED 223 10*3/uL (130-400); RED BLOOD COUNT 3.64 10*6/uL (4.50-5.90); RED CELL DISTRI WIDTH 14.3 % (0-14.5); WHITE BLOOD COUNT 15.2 10*3/uL (4.8-10.8)
[2017-06-19 07:07] LABS: BUN 15 mg/dl (7-24); CARBON DIOXIDE 28 mmol/L (21-32); CHLORIDE 95 mmol/L (98-107); EST GLOM FILT AFRICAN AMERICAN > 60 ml/min; GLUCOSE 90 mg/dL (65-99); POTASSIUM 3.9 mmol/L (3.5-5.1); SODIUM 133 mmol/L (136-145)
[2017-06-19 08:00] VITALS: BP 124/66
[2017-06-19 12:00] VITALS: BP 105/49
[2017-06-19] MEDS ORDERED: METOPROLOL TART50 M1 PO (13:10)
[2017-06-19] MEDS ORDERED: D-1000 185 MG-11 TAB PO (13:10)
[2017-06-19] MEDS ORDERED: METHIMAZOLE10 MG PO (13:10)
[2017-06-19 14:07] LABS: ACID FAST SPEC PROCESSING Concentration (.)
== END 2017-06-19 14:48 | disposition short-term general hospital (02) | DRG 853 ==
LOC: ED 15:42 → ICCU 20:16 → 4E 20:16 → EDHOLD 20:16 → ICCU 20:17 → 4E 06-15 16:40
PROVIDERS: Emergency Medicine; Internal Medicine; Internal Medicine Critical Care Medicine; Internal Medicine Hospice and Palliative Medicine; Internal Medicine Infectious Disease; Internal Medicine Nephrology
PROC: 0W9G3ZX Drainage of Peritoneal Cavity, Percutaneous Approach, Diagnostic (ICD-10-PCS; principal; 2017-06-15)
PROC: 0BBG8ZX Excision of Left Upper Lung Lobe, Via Natural or Artificial Opening Endoscopic, Diagnostic (ICD-10-PCS; 2017-06-18)
PROC: 0W9G3ZZ Drainage of Peritoneal Cavity, Percutaneous Approach (ICD-10-PCS; 2017-06-18)
DX: A41.9 Sepsis, unspecified organism (principal); G93.41 Metabolic encephalopathy; E43 Unspecified severe protein-calorie malnutrition; K65.2 Spontaneous bacterial peritonitis; R18.8 Other ascites; E87.1 Hypo-osmolality and hyponatremia; E87.8 Other disorders of electrolyte and fluid balance, not elsewhere classified; E11.51 Type 2 diabetes mellitus with diabetic peripheral angiopathy without gangrene; C34.90 Malignant neoplasm of unspecified part of unspecified bronchus or lung; R65.20 Severe sepsis without septic shock; K76.9 Liver disease, unspecified; W18.30XA Fall on same level, unspecified, initial encounter; R26.9 Unspecified abnormalities of gait and mobility; S51.012A Laceration without foreign body of left elbow, initial encounter; D64.9 Anemia, unspecified; E87.5 Hyperkalemia; E83.42 Hypomagnesemia; R80.9 Proteinuria, unspecified; R82.4 Acetonuria; E80.4 Gilbert syndrome; K74.60 Unspecified cirrhosis of liver; I25.10 Atherosclerotic heart disease of native coronary artery without angina pectoris; I08.1 Rheumatic disorders of both mitral and tricuspid valves; E78.00 Pure hypercholesterolemia, unspecified; M19.90 Unspecified osteoarthritis, unspecified site; E78.5 Hyperlipidemia, unspecified; I10 Essential (primary) hypertension; K21.9 Gastro-esophageal reflux disease without esophagitis; N40.1 Benign prostatic hyperplasia with lower urinary tract symptoms; J45.909 Unspecified asthma, uncomplicated; E04.2 Nontoxic multinodular goiter; Z68.20 Body mass index [BMI] 20.0-20.9, adult; Z91.09 Other allergy status, other than to drugs and biological substances; Z95.1 Presence of aortocoronary bypass graft; Z95.818 Presence of other cardiac implants and grafts; Z90.79 Acquired absence of other genital organ(s); Z87.891 Personal history of nicotine dependence; Z82.49 Family history of ischemic heart disease and other diseases of the circulatory system; Y93.89 Activity, other specified; Y92.009 Unspecified place in unspecified non-institutional (private) residence as the place of occurrence of the external cause; Y99.8 Other external cause status; Z79.4 Long term (current) use of insulin; Z79.84 Long term (current) use of oral hypoglycemic drugs; Z79.82 Long term (current) use of aspirin; Z79.899 Other long term (current) drug therapy